=== PATIENT | female | born 1975 | race Two or more races ===

== ENCOUNTER → 2024-04-22 | Day surgery (SDC) | payer BC ==
[~2024-04-22] VITALS: Ht 167.6 cm; Wt 110.2 kg
[~2024-04-22] MED LIST: ATOR10TA PO; BUPR150T18 PO; LIDOCAINE 1% INJ PF 5ML AMP ONE; PROP60CA34 PO; PROPOFOL 10 MG/ML 20 ML IV ONE
[2024-04-22 07:40] VITALS: BP 139/90; PULSE 90; RESP 18
[2024-04-22 09:28] VITALS: TEMP 98.6; O2SAT 99
== END | disposition home or self-care (01) ==
LOC: GI 07:18
PROVIDERS: ATTEND Internal Medicine Gastroenterology
DX: Z12.11 Encounter for screening for malignant neoplasm of colon (principal); E78.5 Hyperlipidemia, unspecified; F41.9 Anxiety disorder, unspecified; E66.01 Morbid (severe) obesity due to excess calories; Z79.899 Other long term (current) drug therapy; Z98.890 Other specified postprocedural states; Z80.0 Family history of malignant neoplasm of digestive organs; Z98.891 History of uterine scar from previous surgery; Z88.8 Allergy status to other drugs, medicaments and biological substances; Z91.041 Radiographic dye allergy status; Z68.41 Body mass index [BMI] 40.0-44.9, adult
CPT/HCPCS: 45378; 81025; J2704; J7030